=== PATIENT | female | born 1975 | race Caucasian/White ===

== ENCOUNTER 2017-05-31 13:44 | Emergency (ER) | payer MEDICAID ==
[2017-05-31 14:07] VITALS: BP 139/69
--- NOTE | 2017-05-31 14:24 | EDM.PDOC ---
ED HPI GENERAL MEDICAL PROBLEM - General Chief Complaint: ENT Problem Stated Complaint: LT EAR PAIN Time Seen by Provider: 05/31/17 14:19 Source of Information: Reports: Patient History Limitations: Reports: No Limitations - History of Present Illness INITIAL COMMENTS - FREE TEXT/NARRATIVE: Pt with left ear pain for 4 days. Was worse yesterday. Feels feverish. Using throat lozenges. History of ear problems. With green nasal drainage. Onset: Gradual Onset Date: 05/27/17 Duration: Getting Worse Location: Reports: Head Quality: Reports: Ache Severity: Moderate Improves with: Reports: None Worsens with: Reports: None Associated Symptoms: Reports: Cough, Fever/Chills, Headaches, Loss of Appetite, Malaise left ear Pain Score (Numeric/FACES): 8 - Related Data Allergies Allergy/AdvReac Type Severity Reaction Status Date / Time codeine Allergy Hives Verified 05/31/17 14:09 Penicillins Allergy Diarrhea Verified 05/31/17 14:09 Home Meds: Home Meds Albuterol Sulfate [Ventolin Hfa] 2 inh INH QID PRN 05/31/17 [History] FLUoxetine HCl [Fluoxetine HCl] 40 mg PO DAILY 05/31/17 [History] Past Medical History - Past Health History Medical/Surgical History: Denies Medical/Surgical History Respiratory History: Reports: Asthma Musculoskeletal History: Reports: Fibromyalgia Psychiatric History: Reports: Depression Social & Family History - Tobacco Use Smoking Status *Q: Current Every Day Smoker Years of Tobacco use: 20 Packs/Tins Daily: 1 - Recreational Drug Use Recreational Drug Use: No ED ROS ENT - Review of Systems Review Of Systems: See Below Constitutional: Reports: Fever, Chills, Malaise HEENT: Reports: Ear Pain Respiratory: Reports: Cough Cardiovascular: Reports: No Symptoms GI/Abdominal: Reports: No Symptoms ED EXAM, ENT - Physical Exam Exam: See Below Exam Limited By: No Limitations General Appearance: Alert, WD/WN, No Apparent Distress Ears: Normal External Exam, Normal Canal, Hearing Grossly Normal, Normal TMs Nose: Normal Inspection, Normal Mucousa, No Blood, Nasal Swelling Mouth/Throat: Normal Inspection, Normal Gums, Normal Lips, Normal Oropharynx, Normal Teeth Head: Atraumatic, Normocephalic Neck: Normal Inspection, Supple, Non-Tender, Full Range of Motion Respiratory/Chest: No Respiratory Distress, Lungs Clear, Normal Breath Sounds, No Accessory Muscle Use, Chest Non-Tender Cardiovascular: Normal Peripheral Pulses, Regular Rate, Rhythm, No Edema, No Gallop, No JVD, No Murmur, No Rub GI/Abdominal: Normal Bowel Sounds, Soft, Non-Tender, No Organomegaly, No Distention, No Abnormal Bruit, No Mass Course - Vital Signs Last Recorded V/S: Last Vital Signs Temp 98.1 F 05/31/17 14:05 Pulse 77 05/31/17 14:05 Resp 16 05/31/17 14:05 BP 139/69 05/31/17 14:05 Pulse Ox 98 05/31/17 14:05 Departure - Departure Time of Disposition: 14:24 Disposition: Home, Self-Care 01 Condition: Good Clinical Impression: URI (upper respiratory infection) Qualifiers: URI type: unspecified viral URI Qualified Code(s): J06.9 - Acute upper respiratory infection, unspecified; B97.89 - Other viral agents as the cause of diseases classified elsewhere Eustachian tube disorder Qualifiers: Laterality: left Qualified Code(s): H69.92 - Unspecified Eustachian tube disorder, left ear - Discharge Information Referrals: PCP,None [Primary Care Provider] - Additional Instructions: Refill of Albuterol inhaler given. Pt encouraged Flonase nasal spray twice daily while flared. Nasal saline prn. Increase fluids, rest. May consider decongestant OTC also. Followup if symptoms persist over a week or fever develops. - Problem List & Annotations (1) Eustachian tube disorder Status: Acute Priority: Low Current Visit: Yes Qualifiers: Laterality: left Qualified Code(s): H69.92 - Unspecified Eustachian tube disorder, left ear (2) URI (upper respiratory infection) SNOMED Code(s): 06866225 Code(s): J06.9 - ACUTE UPPER RESPIRATORY INFECTION, UNSPECIFIED Status: Acute Priority: Low Current Visit: Yes Qualifiers: URI type: unspecified viral URI Qualified Code(s): J06.9 - Acute upper respiratory infection, unspecified; B97.89 - Other viral agents as the cause of diseases classified elsewhere
== END 2017-05-31 14:39 | disposition home or self-care (01) ==
LOC: JP.ED 13:44
DX: H69.92 Unspecified Eustachian tube disorder, left ear (principal); J06.9 Acute upper respiratory infection, unspecified; J45.909 Unspecified asthma, uncomplicated; F32.9 Major depressive disorder, single episode, unspecified; F17.210 Nicotine dependence, cigarettes, uncomplicated; Z79.899 Other long term (current) drug therapy; Z88.0 Allergy status to penicillin; Z88.5 Allergy status to narcotic agent
CPT/HCPCS: 99283; 99284

== ENCOUNTER 2020-12-19 10:54 | Emergency (ER) | payer MEDICAID ==
[2020-12-19 11:12] VITALS: BP 140/91; PULSE 90
--- NOTE | 2020-12-19 11:50 | EDM.PDOC ---
ED HPI GENERAL MEDICAL PROBLEM - General Chief Complaint: Respiratory Problem Stated Complaint: TROUBLE BREATHING Time Seen by Provider: 12/19/20 11:30 Source of Information: Reports: Patient History Limitations: Reports: No Limitations - History of Present Illness INITIAL COMMENTS - FREE TEXT/NARRATIVE: 45-year-old female with worsening productive cough over the past 5 to 7 days, yesterday she started developing a fever and right-sided back discomfort. 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 She did have Covid 3 months ago and was tested 1 month ago and was negative but she is concerned she may have redeveloped a Covid infection. No nausea or vomiting, no other cold symptoms. She does have a lot of environmental allergies which were very bad 2 weeks ago. Onset: Gradual Duration: Day(s): (7 days) Associated Symptoms: Reports: Chest Pain (Right posterior chest discomfort), Cough, Fever/Chills, Malaise, Shortness of Breath Lower Back Pain Score (Numeric/FACES): 5 - Related Data Allergies Allergy/AdvReac Type Severity Reaction Status Date / Time codeine Allergy Hives Verified 12/19/20 11:00 Penicillins AdvReac Diarrhea Verified 12/19/20 11:00 Home Meds: Home Meds Albuterol Sulfate [Ventolin Hfa] 2 inh INH QID PRN 05/31/17 [History] FLUoxetine HCl [Fluoxetine HCl] 40 mg PO DAILY 05/31/17 [History] Cetirizine [ZyrTEC] 10 mg PO DAILY 12/19/20 [History] Cholecalciferol (Vitamin D3) [Vitamin D3] 1,000 unit PO DAILY 12/19/20 [History] Clindomycin Soln 1 dose TOP ASDIRECTED 12/19/20 [History] Cyclobenzaprine [Flexeril] 5 mg PO TID 12/19/20 [History] Fish Oil/[place]-3 Fatty Acids [Fish Oil 1,000 MG] 1 cap PO DAILY 12/19/20 [History] Fluticasone Propionate [Flonase Allergy Relief] 2 spray TOP DAILY 12/19/20 [History] Gabapentin [Neurontin] 600 mg PO TID 12/19/20 [History] Ketotifen [Ketotifen 0.025% Ophth Soln] 2 drop TOP BID 12/19/20 [History] Multivitamin [Multi-Vitamin Daily] 1 tab PO DAILY 12/19/20 [History] Vitamin B Complex 1 each PO DAILY 12/19/20 [History] hydrOXYzine pamoate [Hydroxyzine Pamoate] 25 mg PO TID PRN 12/19/20 [History] Past Medical History - Past Health History Medical/Surgical History: Denies Medical/Surgical History HEENT History: Reports: Impaired Vision Respiratory History: Reports: Asthma 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: Reports: GERD 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: Musculoskeletal History: Reports: Fibromyalgia Neurological History: Reports: Concussion, Head Trauma Psychiatric History: Reports: Depression Endocrine/Metabolic History: Reports: Obesity/BMI 30+ Hematologic History: Reports: Blood Transfusion(s) Oncologic (Cancer) History: Reports: Cervix, Other (See Below) Other Oncologic History: lep Dermatologic History: Reports: Other (See Below) Other Dermatologic History: frequent rash - Infectious Disease History Infectious Disease History: Reports: Chicken Pox, Measles, Mumps - Past Surgical History HEENT Surgical History: Reports: Other (See Below) Other HEENT Surgeries/Procedures: ruptured orbit surgery Neurological Surgical History: Reports: Lumbar Spine Musculoskeletal Surgical History: Reports: Other (See Below) Other Musculoskeletal Surgeries/Procedures:: Back surgery elbow surgery nose surgery fx ribs Social & Family History - Tobacco Use Tobacco Use Status *Q: Current Every Day Tobacco User Years of Tobacco use: 25 Packs/Tins Daily: 0.5 Used Tobacco, but Quit: No Second Hand Smoke Exposure: Yes - Caffeine Use Caffeine Use: Reports: Coffee, Soda, Tea - Recreational Drug Use Recreational Drug Use: No ED ROS GENERAL - Review of Systems Review Of Systems: See Below Constitutional: Reports: Fever, Chills, Malaise HEENT: Reports: Rhinitis. Denies: Throat Pain Respiratory: Reports: Shortness of Breath, Cough, Sputum Cardiovascular: Reports: Chest Pain GI/Abdominal: Denies: Diarrhea, Nausea, Vomiting Musculoskeletal: Reports: Back Pain Skin: Reports: No Symptoms Neurological: Denies: Dizziness, Headache Psychiatric: Reports: No Symptoms ED EXAM, GENERAL - Physical Exam Exam: See Below Exam Limited By: No Limitations General Appearance: Alert, No Apparent Distress Ears: Normal TMs Head: Atraumatic Respiratory/Chest: No Respiratory Distress, Lungs Clear Cardiovascular: Regular Rate, Rhythm Neurological: Alert, Oriented Psychiatric: Normal Affect, Normal Mood Skin Exam: Warm, Dry Course - Vital Signs Last Recorded V/S: Last Vital Signs Temp 97.0 F 12/19/20 11:29 Pulse 90 12/19/20 11:29 Resp 16 12/19/20 11:29 BP 140/91 H 12/19/20 11:29 Pulse Ox 100 12/19/20 11:29 - Orders/Labs/Meds Orders: Active Orders 24 hr Category Date Time Status Isolation [COMM] Stat Oth 12/19/20 11:42 Ordered Labs: Laboratory Tests 12/19/20 Range/Units 11:41 Influenza Type A RNA Negative (NEGATIVE) RSV RNA (INAAT) Negative (NEGATIVE) Influenza Type B RNA Negative (NEGATIVE) SARS-CoV-2 RNA (TOLU) Negative (NEGATIVE) - Re-Assessments/Exams Free Text/Narrative Re-Assessment/Exam: 12/19/20 11:52 Patient has been doing research and is convinced she can redevelop Covid 60 days after your original infection and she wants to be checked. A 4 Plex viral study was obtained as well as a two-view chest x-ray. 12/19/20 16:52 Viral studies are all negative, 2 view chest x-ray is normal. Patient will be placed on a course of Zithromax, try to decrease smoking and recheck in 3 to 4 days if not improving. Departure - Departure Time of Disposition: 13:03 Disposition: Home, Self-Care 01 Clinical Impression: Bronchitis - Discharge Information Instructions: Acute Bronchitis, Adult, [id number], Acute Bronchitis, Adult Referrals: Karen Shirley MD [Primary Care Provider] - Forms: ED Department Discharge Care Plan Goals: Take Zithromax as prescribed, try to reduce smoking and increase activity as tolerated. Consider returning in 4 to 6 days if not improving satisfactorily, or return sooner if worsening such as difficulty breathing or persistent high fever. Sepsis Event Note (ED) - Evaluation Sepsis Screening Result: No Definite Risk - Focused Exam Vital Signs: Vital Signs Temp Pulse Resp BP Pulse Ox 12/19/20 11:29 97.0 F 90 16 140/91 H 100 12/19/20 11:11 97.0 F 90 16 140/91 H 100 - My Orders Last 24 Hours: My Active Orders 12/19/20 11:42 Isolation [COMM] Stat - Assessment/Plan Last 24 Hours: My Active Orders 12/19/20 11:42 Isolation [COMM] Stat
[2020-12-19 12:27] LABS: CORONAVIRUS COVID-19 NAA NEGATIVE (NEGATIVE)
--- NOTE | 2020-12-19 12:53 | CR ---
CHEST: 2 view CLINICAL HISTORY:Cough and fever COMPARISON:August 2020 FINDINGS: The heart size, pulmonary vascularity and hilar structures are normal. No infiltrate effusion or pneumothorax is seen. IMPRESSION: No acute cardiopulmonary process.
== END 2020-12-19 13:02 | disposition home or self-care (01) ==
LOC: JP.ED 10:54
DX: J40 Bronchitis, not specified as acute or chronic (principal); E66.9 Obesity, unspecified; Z68.32 Body mass index [BMI] 32.0-32.9, adult; Z79.899 Other long term (current) drug therapy; Z20.822 Contact with and (suspected) exposure to COVID-19; Z88.5 Allergy status to narcotic agent; Z88.0 Allergy status to penicillin; Z72.0 Tobacco use
CPT/HCPCS: 0241U; 71046; 99285

== ENCOUNTER 2021-06-23 19:59 | Emergency (ER) | payer MEDICAID ==
[2021-06-23 20:20] VITALS: BP 157/97; PULSE 88
--- NOTE | 2021-06-23 20:25 | EDM.PDOC ---
ED HPI GENERAL MEDICAL PROBLEM - General Chief Complaint: General Stated Complaint: BODY ACHES\RESPITORY ISSUES Time Seen by Provider: 06/23/21 20:21 Source of Information: Reports: Patient History Limitations: Reports: No Limitations - History of Present Illness INITIAL COMMENTS - FREE TEXT/NARRATIVE: Is a 45-year-old female presenting to the ED for evaluation of body aches, sore throat, cough, and shortness of breath. Patient is concerned that she may have contracted Covid. The patient did receive 2 doses of the Pfizer vaccine with the first being in February this year and the second being in March. 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 She reports that she has been having upper respiratory symptoms for about the last month and has been on several courses of antibiotics for this without resolution. Over the last 2 to 3 days she has developed the body aches, sore throat, and the worsening shortness of breath. The patient does smoke. She denies any fever or chills but has had fatigue. She is just concerned that she wants to make sure she is not contagious before returning to work and exposing others to her illness. She is aware that RSV is also contagious and can affect adults as a URI. - Related Data Allergies Allergy/AdvReac Type Severity Reaction Status Date / Time codeine Allergy Hives Verified 06/23/21 20:23 Penicillins AdvReac Diarrhea Verified 06/23/21 20:23 Home Meds: Home Meds Albuterol Sulfate [Ventolin Hfa] 2 inh INH QID PRN 05/31/17 [History] FLUoxetine HCl [Fluoxetine HCl] 40 mg PO DAILY 05/31/17 [History] Cetirizine [ZyrTEC] 10 mg PO DAILY 12/19/20 [History] Cholecalciferol (Vitamin D3) [Vitamin D3] 1,000 unit PO DAILY 12/19/20 [History] Clindomycin Soln 1 dose TOP ASDIRECTED 12/19/20 [History] Cyclobenzaprine [Flexeril] 5 mg PO TID 12/19/20 [History] Fish Oil/[place]-3 Fatty Acids [Fish Oil 1,000 MG] 1 cap PO DAILY 12/19/20 [History] Fluticasone Propionate [Flonase Allergy Relief] 2 spray TOP DAILY 12/19/20 [History] Gabapentin [Neurontin] 600 mg PO TID 12/19/20 [History] Ketotifen [Ketotifen 0.025% Ophth Soln] 2 drop TOP BID 12/19/20 [History] Multivitamin [Multi-Vitamin Daily] 1 tab PO DAILY 12/19/20 [History] Vitamin B Complex 1 each PO DAILY 12/19/20 [History] hydrOXYzine pamoate [Hydroxyzine Pamoate] 25 mg PO TID PRN 12/19/20 [History] Past Medical History - Past Health History Medical/Surgical History: Denies Medical/Surgical History HEENT History: Reports: Impaired Vision Respiratory History: Reports: Asthma 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: Reports: GERD 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: Musculoskeletal History: Reports: Fibromyalgia Neurological History: Reports: Concussion, Head Trauma Psychiatric History: Reports: Depression Endocrine/Metabolic History: Reports: Obesity/BMI 30+ Hematologic History: Reports: Blood Transfusion(s) Oncologic (Cancer) History: Reports: Cervix, Other (See Below) Other Oncologic History: lep Dermatologic History: Reports: Other (See Below) Other Dermatologic History: frequent rash - Infectious Disease History Infectious Disease History: Reports: Chicken Pox, Measles, Mumps - Past Surgical History HEENT Surgical History: Reports: Other (See Below) Other HEENT Surgeries/Procedures: ruptured orbit surgery Neurological Surgical History: Reports: Lumbar Spine Musculoskeletal Surgical History: Reports: Other (See Below) Other Musculoskeletal Surgeries/Procedures:: Back surgery elbow surgery nose surgery fx ribs Social & Family History - Tobacco Use Tobacco Use Status *Q: Current Every Day Tobacco User Years of Tobacco use: 20 Packs/Tins Daily: 0.5 Tobacco Use Comment: smoker - Caffeine Use Caffeine Use: Reports: Coffee, Soda, Tea ED ROS GENERAL - Review of Systems Review Of Systems: See Below Constitutional: Reports: Fatigue HEENT: Reports: Throat Pain Respiratory: Reports: Shortness of Breath, Cough Cardiovascular: Reports: No Symptoms Endocrine: Reports: Fatigue GI/Abdominal: Reports: No Symptoms : Reports: No Symptoms Musculoskeletal: Reports: Muscle Pain (Generalized muscle aches) Skin: Reports: No Symptoms Neurological: Reports: Headache Psychiatric: Reports: No Symptoms Hematologic/Lymphatic: Reports: No Symptoms Immunologic: Reports: No Symptoms ED EXAM, GENERAL - Physical Exam Exam: See Below Exam Limited By: No Limitations General Appearance: Alert, No Apparent Distress Eye Exam: Bilateral Eye: EOMI, PERRL Nose: Normal Inspection, Normal Mucosa Throat/Mouth: Normal Inspection, Normal Oropharynx, Normal Voice, No Airway Compromise Head: Atraumatic, Normocephalic Neck: Normal Inspection, Supple, Non-Tender, Full Range of Motion. No: Lymphadenopathy (R), Lymphadenopathy (L) Respiratory/Chest: No Respiratory Distress, No Accessory Muscle Use, Wheezing (Scant inspiratory with more significant expiratory wheezes). No: Crackles, Rales, Rhonchi, Prolonged Expiration Cardiovascular: Normal Peripheral Pulses, Regular Rate, Rhythm, No Murmur GI/Abdominal: Normal Bowel Sounds, Soft, Non-Tender Extremities: Normal Range of Motion Neurological: Alert, Oriented, Normal Cognition, No Motor/Sensory Deficits Psychiatric: Normal Affect, Normal Mood Skin Exam: Warm, Dry, Intact, Normal Color Course - Vital Signs Last Recorded V/S: Last Vital Signs Temp 36.6 C 06/23/21 20:19 Pulse 88 06/23/21 20:19 Resp 16 06/23/21 20:19 BP 157/97 H 06/23/21 20:19 Pulse Ox 98 06/23/21 20:19 - Orders/Labs/Meds Orders: Active Orders 24 hr Category Date Time Status Chest 2V [CR] Stat Exams 06/23/21 21:03 Ordered Labs: Laboratory Tests 06/23/21 06/23/21 06/23/21 Range/Units 20:26 20:38 20:38 WBC 7.0 (4.5-11.0) K/uL RBC 4.10 (3.30-5.50) M/uL Hgb 12.6 (12.0-15.0) g/dL Hct 38.1 (36.0-48.0) % MCV 93 (80-98) fL MCH 31 (27-31) pg MCHC 33 (32-36) % Plt Count 326 (150-400) K/uL Neut % (Auto) 50.6 (36-66) % Lymph % (Auto) 37.0 (24-44) % [place] % (Auto) 8.7 H (2-6) % Eos % (Auto) 3.1 (2-4) % Baso % (Auto) 0.6 (0-1) % Sodium 140 (140-148) mmol/L Potassium 3.6 (3.6-5.2) mmol/L Chloride 103 (100-108) mmol/L Carbon Dioxide 24 (21-32) mmol/L Anion Gap 13.2 (5.0-14.0) mmol/L BUN 16 (7-18) mg/dL Creatinine 1.0 (0.6-1.0) mg/dL Est Cr Clr Drug Dosing 62.58 mL/min Estimated GFR (MDRD) 59 L (>60) Glucose 112 H (74-106) mg/dL Calcium 9.0 (8.5-10.1) mg/dL C-Reactive Protein 0.25 (0.0-0.3) mg/dL SARS CoV-2 RNA Rapid TOLU Negative - Re-Assessments/Exams Free Text/Narrative Re-Assessment/Exam: 06/23/21 21:41 labs were obtained showing a normal CBC and basic metabolic profile. The COVID-19 test is negative. Chest x-ray is unremarkable for any acute infiltrates. There is no reticular pattern to suggest a bronchiolitis. This is likely a viral upper respiratory tract infection causing her symptoms. We discussed management including the use of Tylenol or ibuprofen for any fever or body aches, fluids, and rest. Indications to return to the ED were discussed and the patient was discharged in satisfactory condition. Departure - Departure Time of Disposition: 21:40 Disposition: Home, Self-Care 01 Clinical Impression: Viral URI with cough - Discharge Information Instructions: Viral Respiratory Infection, [id number] Referrals: PCP,None [Primary Care Provider] - Forms: ED Department Discharge Care Plan Goals: Your work-up today has shown a normal chest x-ray and normal labs including a CBC, basic metabolic profile, and COVID-19 test. There is nothing in your chest x-ray to suggest bronchiolitis or RSV. Moreover, with a normal white count you likely just have a common cold or viral upper respiratory infection with cough. This is managed with fluids, Tylenol or ibuprofen for fever and body aches, and rest. Although this is a viral infection, it is no more infectious than just the common cold. Good handwashing will help prevent spread and covering your cough will help reduce the aerosolized droplets. Is no evidence in the work-up for a bronchitis or pneumonia. Sepsis Event Note (ED) - Evaluation Sepsis Screening Result: No Definite Risk - Focused Exam Vital Signs: Vital Signs Temp Pulse Resp BP Pulse Ox 06/23/21 20:19 36.6 C 88 16 157/97 H 98 06/23/21 20:13 36.6 C 88 16 157/97 H 98 - Problem List & Annotations (1) Viral URI with cough SNOMED Code(s): 325108166, [id number] Code(s): J06.9 - ACUTE UPPER RESPIRATORY INFECTION, UNSPECIFIED Status: Acute Priority: Medium Current Visit: Yes - Problem List Review Problem List Initiated/Reviewed/Updated: Yes - My Orders Last 24 Hours: My Active Orders 06/23/21 21:03 Chest 2V [CR] Stat - Assessment/Plan Last 24 Hours: My Active Orders 06/23/21 21:03 Chest 2V [CR] Stat
--- NOTE | 2021-06-24 10:31 | CR ---
CHEST: 2 view CLINICAL HISTORY:Cough and dyspnea COMPARISON:12/19/2020 FINDINGS: The heart size, pulmonary vascularity and hilar structures are normal. No infiltrate effusion or pneumothorax is seen. IMPRESSION: No acute cardiopulmonary process.
== END 2021-06-23 21:47 | disposition home or self-care (01) ==
LOC: JP.ED 19:59
DX: J06.9 Acute upper respiratory infection, unspecified (principal); J45.909 Unspecified asthma, uncomplicated; F17.210 Nicotine dependence, cigarettes, uncomplicated; E66.9 Obesity, unspecified; Z68.32 Body mass index [BMI] 32.0-32.9, adult; Z88.5 Allergy status to narcotic agent; Z88.0 Allergy status to penicillin; Z79.899 Other long term (current) drug therapy; Z20.822 Contact with and (suspected) exposure to COVID-19
CPT/HCPCS: 36415; 71046; 71046-26; 80048; 85025; 86140; 99283-25; U0002

== ENCOUNTER 2021-07-09 20:52 | Emergency (ER) | payer MEDICAID ==
[2021-07-09 21:33] VITALS: BP 130/85; PULSE 95
[2021-07-09] MEDS ORDERED: Methocarbamol 500 MG Tab PO ONE (21:47)
[2021-07-09] MEDS ORDERED: Ketorolac 30 MG/ML SDV IM ONE (21:47)
[2021-07-09] MEDS ORDERED: Magnesium Oxide 400 MG Tab PO ONE (22:56)
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
== END 2021-07-09 23:23 | disposition home or self-care (01) ==
LOC: JP.ED 20:52
DX: S76.012A Strain of muscle, fascia and tendon of left hip, initial encounter (principal); S30.0XXA Contusion of lower back and pelvis, initial encounter; E83.42 Hypomagnesemia; K21.9 Gastro-esophageal reflux disease without esophagitis; E66.9 Obesity, unspecified; J45.909 Unspecified asthma, uncomplicated; Z68.32 Body mass index [BMI] 32.0-32.9, adult; Z88.0 Allergy status to penicillin; Z88.5 Allergy status to narcotic agent; X50.0XXA Overexertion from strenuous movement or load, initial encounter; Y93.B9 Activity, other involving muscle strengthening exercises
CPT/HCPCS: 36415; 80048; 83735; 85025; 86140; 96372; 99283; A9270; J1885

== ENCOUNTER 2021-07-14 13:08 | Emergency (ER) | payer MEDICAID ==
[2021-07-14 14:00] VITALS: BP 138/88; PULSE 82
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
== END 2021-07-14 14:35 | disposition home or self-care (01) ==
LOC: JP.ED 13:08
DX: S86.912A Strain of unspecified muscle(s) and tendon(s) at lower leg level, left leg, initial encounter (principal); E66.9 Obesity, unspecified; Z88.0 Allergy status to penicillin; Z88.5 Allergy status to narcotic agent; Z68.31 Body mass index [BMI] 31.0-31.9, adult; W54.1XXA Struck by dog, initial encounter
CPT/HCPCS: 99283

== ENCOUNTER 2022-03-30 15:37 | Emergency (ER) | payer MEDICAID ==
[2022-03-30 16:05] VITALS: BP 170/107; PULSE 79
[2022-03-30] MEDS ORDERED: Ketorolac 30 MG/ML SDV IM ONE (17:51)
[2022-03-30] MEDS ORDERED: Fluconazole 150 MG Tab PO ONE (17:51)
[2022-03-30] MEDS ORDERED: Azithromycin 250 MG Tab PO ONE (17:52)
== END 2022-03-30 18:26 | disposition home or self-care (01) ==
LOC: JP.ED 15:37
DX: R07.81 Pleurodynia (principal); B37.0 Candidal stomatitis; L20.9 Atopic dermatitis, unspecified; J45.909 Unspecified asthma, uncomplicated; F17.210 Nicotine dependence, cigarettes, uncomplicated; E66.9 Obesity, unspecified; Z68.32 Body mass index [BMI] 32.0-32.9, adult; Z88.5 Allergy status to narcotic agent; Z88.0 Allergy status to penicillin; Z79.899 Other long term (current) drug therapy; Z86.16 Personal history of COVID-19
CPT/HCPCS: 71101; 96372; 99284; A9270; J1885; 99282

== ENCOUNTER 2023-01-23 17:13 | Emergency (ER) | payer MEDICAID ==
[2023-01-23 18:25] VITALS: BP 148/101; PULSE 83
[2023-01-23] MEDS ORDERED: diphenhydrAMINE 50 MG/ML SDV IVPUSH ONE (19:02)
[2023-01-23] MEDS ORDERED: Ketorolac 30 MG/ML SDV IVPUSH ONE (19:02)
[2023-01-23] MEDS ORDERED: Dexamethasone 4 MG/ML SDV IVPUSH ONE (19:02)
[2023-01-23] MEDS ORDERED: Sodium Chloride 0.9% 10 ML Syringe FLUSH PRN (19:02)
[2023-01-23] MEDS ORDERED: Prochlorperazine 10 MG/2 ML SDV IVPUSH ONE (19:02)
[2023-01-23 19:04] LABS: BASOPHILS ABSOLUTE AUTO 0.04 K/uL (0.00-0.10); BASOPHILS PERCENT AUTO 0.8 % (0.1-1.3); EOSINOPHILS ABSOLUTE AUTO 0.16 K/uL (0.00-0.40); EOSINOPHILS PERCENT AUTO 3.1 % (0.0-5.4); HEMATOCRIT 36.5 % (34.3-46.0); IMMATURE GRAN PERCENT AUTO 0.2 % (0.0-0.7); LYMPHOCYTES PERCENT AUTO 38.7 % (11.4-47.7); MEAN CORPUSCULAR HGB CONC 32.9 g/dL (31.6-35.5); MEAN CORPUSCULAR VOLUME 91.3 fL (81.4-99.0); MONOCYTES ABSOLUTE AUTO 0.42 K/uL (0.20-0.90); MONOCYTES PERCENT AUTO 8.1 % (3.3-12.6); NEUTROPHILS ABSOLUTE AUTO 2.54 K/uL (1.0-7.6); NEUTROPHILS PERCENT AUTO 49.1 % (40.0-78.1); PLATELET COUNT,PLT 304 K/uL (130-375); WHITE BLOOD CELL COUNT,WBC 5.2 K/uL (3.2-11.0)
[2023-01-23 19:23] LABS: IMMATURE GRAN ABSOLUTE AUTO 0.01 K/uL (0.00-0.23)
== END 2023-01-23 20:36 | disposition home or self-care (01) ==
LOC: JP.ED 17:13
DX: G43.009 Migraine without aura, not intractable, without status migrainosus (principal); J30.1 Allergic rhinitis due to pollen; J30.2 Other seasonal allergic rhinitis; H65.23 Chronic serous otitis media, bilateral; J45.909 Unspecified asthma, uncomplicated; E66.9 Obesity, unspecified; F17.210 Nicotine dependence, cigarettes, uncomplicated; Z68.26 Body mass index [BMI] 26.0-26.9, adult; Z86.16 Personal history of COVID-19; Z88.5 Allergy status to narcotic agent; Z88.0 Allergy status to penicillin; Z79.899 Other long term (current) drug therapy
CPT/HCPCS: 36415; 70486; 85025; 86140; 96374; 96375; 99284; J0780; J1100; J1885; J3490

== ENCOUNTER 2023-02-03 16:35 | Emergency (ER) | payer MEDICAID ==
[2023-02-03] MEDS ORDERED: Ketorolac 30 MG/ML SDV IM ONE (20:20)
[2023-02-03 20:58] VITALS: BP 124/87; PULSE 75
== END 2023-02-03 20:59 | disposition home or self-care (01) ==
LOC: JP.ED 16:35
DX: S16.1XXA Strain of muscle, fascia and tendon at neck level, initial encounter (principal); S00.432A Contusion of left ear, initial encounter; M47.22 Other spondylosis with radiculopathy, cervical region; J45.909 Unspecified asthma, uncomplicated; K21.9 Gastro-esophageal reflux disease without esophagitis; E66.9 Obesity, unspecified; Z88.5 Allergy status to narcotic agent; Z88.0 Allergy status to penicillin; Z86.16 Personal history of COVID-19; Z68.26 Body mass index [BMI] 26.0-26.9, adult; Z72.0 Tobacco use; W18.09XA Striking against other object with subsequent fall, initial encounter; Y93.39 Activity, other involving climbing, rappelling and jumping off
CPT/HCPCS: 72125; 76377; 96372; 99284; J1885

== ENCOUNTER 2023-02-09 22:17 | Emergency (ER) | payer MEDICAID ==
[2023-02-09 22:35] VITALS: BP 155/88; PULSE 82
[2023-02-09 22:53] LABS: BASOPHILS ABSOLUTE AUTO 0.05 K/uL (0.00-0.10); BASOPHILS PERCENT AUTO 0.9 % (0.1-1.3); EOSINOPHILS ABSOLUTE AUTO 0.23 K/uL (0.00-0.40); EOSINOPHILS PERCENT AUTO 4.3 % (0.0-5.4); HEMOGLOBIN 11.6 g/dL (11.2-15.5); IMMATURE GRAN PERCENT AUTO 0.4 % (0.0-0.7); LYMPHOCYTES ABSOLUTE AUTO 1.99 K/uL (0.8-3.3); LYMPHOCYTES PERCENT AUTO 37.1 % (11.4-47.7); MEAN CORPUSCULAR HEMOGLOBIN 30.4 pg (31.6-35.5); MEAN CORPUSCULAR HGB CONC 33.1 g/dL (31.6-35.5); MEAN CORPUSCULAR VOLUME 91.6 fL (81.4-99.0); MONOCYTES ABSOLUTE AUTO 0.49 K/uL (0.20-0.90); MONOCYTES PERCENT AUTO 9.1 % (3.3-12.6); NEUTROPHILS ABSOLUTE AUTO 2.59 K/uL (1.0-7.6); NEUTROPHILS PERCENT AUTO 48.2 % (40.0-78.1); PLATELET COUNT,PLT 301 K/uL (130-375); RED BLOOD CELL COUNT 3.82 M/uL (3.77-5.24); WHITE BLOOD CELL COUNT,WBC 5.4 K/uL (3.2-11.0)
[2023-02-09 22:56] LABS: IMMATURE GRAN ABSOLUTE AUTO 0.02 K/uL (0.00-0.23)
[2023-02-09 23:00] LABS: ANION GAP 9.4 mmol/L (5.0-14.0); CALCIUM 9.2 mg/dL (8.5-10.1); CREATININE 0.9 mg/dL (0.6-1.0); EST CRCL DRUG DOSING (CG) 69.41 mL/min
[2023-02-09 23:33] LABS: AMPHETAMINES SCREEN, URINE NEGATIVE (NEGATIVE); BARBITURATE SCREEN,URINE NEGATIVE (NEGATIVE); BENZODIAZEPINES SCREEN,URINE NEGATIVE (NEGATIVE); METHADONE SCREEN, URINE NEGATIVE (NEGATIVE); METHAMPHETAMINES SCREEN, URINE NEGATIVE (NEGATIVE); OXYCODONE SCREEN,URINE NEGATIVE (NEGATIVE); PROPOXYPHENE SCREEN,URINE NEGATIVE (NEGATIVE); THC SCREEN,URINE 50 NG/ML NEGATIVE (NEGATIVE)
== END 2023-02-10 00:12 | disposition home or self-care (01) ==
LOC: JP.ED 22:17
DX: F22 Delusional disorders (principal); I10 Essential (primary) hypertension; J45.909 Unspecified asthma, uncomplicated; E66.9 Obesity, unspecified; F17.210 Nicotine dependence, cigarettes, uncomplicated; Z68.26 Body mass index [BMI] 26.0-26.9, adult; Z86.16 Personal history of COVID-19; Z88.5 Allergy status to narcotic agent; Z88.0 Allergy status to penicillin; Z79.899 Other long term (current) drug therapy
CPT/HCPCS: 36415; 80048; 80305-QW; 85025; 99284

== ENCOUNTER 2023-10-18 17:52 | Emergency (ER) | payer MEDICAID ==
[2023-10-18 18:46] LABS: BASOPHILS ABSOLUTE AUTO 0.05 K/uL (0.00-0.10); EOSINOPHILS ABSOLUTE AUTO 0.17 K/uL (0.00-0.40); EOSINOPHILS PERCENT AUTO 3.3 % (0.0-5.4); HEMATOCRIT 37.8 % (34.3-46.0); HEMOGLOBIN 12.8 g/dL (11.2-15.5); IMMATURE GRAN ABSOLUTE AUTO 0.01 K/uL (0.00-0.23); IMMATURE GRAN PERCENT AUTO 0.2 % (0.0-0.7); LYMPHOCYTES ABSOLUTE AUTO 1.68 K/uL (0.8-3.3); LYMPHOCYTES PERCENT AUTO 32.6 % (11.4-47.7); MEAN CORPUSCULAR HEMOGLOBIN 30.9 pg (31.6-35.5); MEAN CORPUSCULAR HGB CONC 33.9 g/dL (31.6-35.5); MEAN CORPUSCULAR VOLUME 91.3 fL (81.4-99.0); MONOCYTES ABSOLUTE AUTO 0.47 K/uL (0.20-0.90); MONOCYTES PERCENT AUTO 9.1 % (3.3-12.6); NEUTROPHILS ABSOLUTE AUTO 2.77 K/uL (1.0-7.6); NEUTROPHILS PERCENT AUTO 53.8 % (40.0-78.1); PLATELET COUNT,PLT 285 K/uL (130-375); RED BLOOD CELL COUNT 4.14 M/uL (3.77-5.24); WHITE BLOOD CELL COUNT,WBC 5.2 K/uL (3.2-11.0)
[2023-10-18 19:08] LABS: A/G RATIO 1.2 (1.2-2.2); ALANINE AMINOTRANSFERASE,ALT 21 U/L (12-78); ALBUMIN 3.9 g/dL (3.4-5.0); ALKALINE PHOSPHATASE 113 U/L (46-116); ANION GAP 8.7 mmol/L (5.0-14.0); ASPARTATE AMNIOTRANSFERASE,AST 14 U/L (15-37); BILIRUBIN TOTAL 0.1 mg/dL (0.2-1.0); BLOOD UREA NITROGEN,BUN 14 mg/dL (7-18); CALCIUM 8.5 mg/dL (8.5-10.1); CARBON DIOXIDE,CO2 29 mmol/L (21-32); CHLORIDE,CL 103 mmol/L (100-108); EST CRCL DRUG DOSING (CG) 60.56 mL/min; ESTIMATED GFR 69 mL/min (>60); GLUCOSE RANDOM 103 mg/dL (74-106); POTASSIUM,K 4.2 mmol/L (3.6-5.2); PROTEIN TOTAL,TP 7.2 g/dL (6.4-8.2); SODIUM,NA 141 mmol/L (140-148)
[2023-10-18 19:11] LABS: AMPHETAMINES SCREEN, URINE NEGATIVE (NEGATIVE); BARBITURATE SCREEN,URINE NEGATIVE (NEGATIVE); BENZODIAZEPINES SCREEN,URINE PRESUMPTIVE POSITIVE (NEGATIVE); METHADONE SCREEN, URINE NEGATIVE (NEGATIVE); METHAMPHETAMINES SCREEN, URINE NEGATIVE (NEGATIVE); OXYCODONE SCREEN,URINE NEGATIVE (NEGATIVE); PROPOXYPHENE SCREEN,URINE NEGATIVE (NEGATIVE); THC SCREEN,URINE 50 NG/ML NEGATIVE (NEGATIVE)
[2023-10-18 19:15] LABS: TSH ULTRASENSITIVE 2.152 uIU/mL (0.358-3.740)
[2023-10-18] MEDS: Haloperidol Lactate 5 MG/ML SDV IVPUSH ONE (20:06)
[2023-10-18] MEDS: diphenhydrAMINE 50 MG/ML SDV IVPUSH ONE (20:21)
[2023-10-18] MEDS: LORazepam 2 MG/ML SDV IVPUSH ONE (20:24)
[2023-10-18 21:26] LABS: APPEARANCE,URINE CLEAR (CLEAR); BILIRUBIN,URINE NEGATIVE (NEGATIVE); COLOR,URINE YELLOW (YELLOW); GLUCOSE,URINE NEGATIVE (NEGATIVE); KETONES,URINE NEGATIVE (NEGATIVE); LEUKOCYTE ESTERASE,URINE NEGATIVE (NEGATIVE); NITRITE,URINE NEGATIVE (NEGATIVE); OCCULT BLOOD,URINE TRACE-INTACT (NEGATIVE); PROTEIN,URINE NEGATIVE (NEGATIVE); UROBILINOGEN,URINE 0.2 EU/dL (0.2-1.0)
[2023-10-18 21:33] LABS: AMORPHOUS SEDIMENT,URINE NOT SEEN; BACTERIA,URINE RARE; EPITHELIAL CELLS,URINE RARE; MUCUS,URINE RARE; RBC,URINE 0-5 (0-5); WBC,URINE 0-5 (0-5)
[2023-10-19] MEDS ORDERED: Nicotine 21 MG/24 Hr Patch TRDERM ONE (14:16)
[2023-10-19 14:25] VITALS: BP 113/69; PULSE 77
== END 2023-10-19 14:27 ==
LOC: JP.ED 17:52
DX: T43.221A Poisoning by selective serotonin reuptake inhibitors, accidental (unintentional), initial encounter (principal); T48.1X1A Poisoning by skeletal muscle relaxants [neuromuscular blocking agents], accidental (unintentional), initial encounter; F22 Delusional disorders; I10 Essential (primary) hypertension; J45.909 Unspecified asthma, uncomplicated; K21.9 Gastro-esophageal reflux disease without esophagitis; E66.9 Obesity, unspecified; F17.210 Nicotine dependence, cigarettes, uncomplicated; Z86.16 Personal history of COVID-19; Z79.899 Other long term (current) drug therapy; Z88.5 Allergy status to narcotic agent; Z88.0 Allergy status to penicillin; Z68.27 Body mass index [BMI] 27.0-27.9, adult
CPT/HCPCS: 36415; 80053; 80143; 80179; 80305; 80307; 81001; 84443; 85025; 93005; 93010; 96374; 96375; 99285; J1200; J1630; J2060